=== PATIENT | male | born 1965 | race Two or more races ===

== ENCOUNTER 2022-03-29 14:42 | Emergency (ER) | payer OTHER ==
[~2022-03-29] VITALS: Ht 172.7 cm; Wt 108.9 kg
[~2022-03-29 14:42] MED LIST: COZAAR100 MG; DIOVAN40 MG PO; TAMIFLU12 MG/ML PO
[2022-03-29] MEDS ORDERED: DUI500 PO (17:12)
== END 2022-03-29 17:15 | disposition home or self-care (01) ==
LOC: ER 14:42
DX: N50.812 Left testicular pain (principal)

== ENCOUNTER → 2022-04-19 | Emergency (ER) | payer OTHER ==
[~2022-04-19] VITALS: Ht 172.7 cm; Wt 106.6 kg
[~2022-04-19] MED LIST changes: +BACTRIM DS TAB1 EACH PO; +DUI500 PO; +PERCOCET 5-3251 EACH PO; +TAMS0.4C PO
== END | disposition home or self-care (01) ==
LOC: ER 23:14
DX: N20.1 Calculus of ureter (principal); N20.0 Calculus of kidney; M54.50 Low back pain, unspecified; I10 Essential (primary) hypertension; Z88.8 Allergy status to other drugs, medicaments and biological substances